=== PATIENT | male | born 1985 | race Caucasian/White ===

== ENCOUNTER 2017-05-12 15:30 | Inpatient (IN) | payer MEDICARE, OTHER ==
--- NOTE | 2017-05-12 16:17 | PDOC ---
History of Present Illness - General Chief Complaint: Pain, Acute Stated Complaint: RT SIDE PAIN Time Seen by Provider: 05/12/17 16:16 - History of Present Illness Initial Comments: 05/12/17 16:55 31M with no pmh suspicions that he has gallstone, RUQ last right upper quadrant to epigastrium radiates to back 10/10 Worst while laying done worst after heavy meal and deep breathes. "food gets stuck" Gets better with hot showers. Hasnt tried any meds. Feels nauseated. 1 episode of vomiting 2 days ago, some chills and sweat. Poor diet, drinks 2 6-packs of beer in weekend. 05/12/17 18:48 Past History - Past Medical History Allergies/Adverse Reactions: Allergies Allergy/AdvReac Type Severity Reaction Status Date / Time No Known Allergies Allergy Verified 05/12/17 15:51 Home Medications: Ambulatory Orders NK [No Known Home Medication] 05/12/17 Other medical history: DENIES. - Suicide/Smoking/Psychosocial Hx Smoking History: Never smoked Review of Systems - Review of Systems Constitutional: Yes: Chills, Diaphoresis, Fever ABD/GI: Yes: Constipated, Diarrhea, Vomiting *Physical Exam - Vital Signs Last Vital Signs Temp Pulse Resp BP Pulse Ox 97.6 F 83 19 141/93 98 05/12/17 15:51 05/12/17 15:51 05/12/17 15:51 05/12/17 15:51 05/12/17 15:51 - Physical Exam Respiratory/Chest: positive: Lungs Clear, Normal Breath Sounds. negative: Chest Tender Cardiovascular: positive: Regular Rhythm, Regular Rate, S1, S2 Gastrointestinal/Abdominal: positive: Normal Bowel Sounds, Tender (URQ), Soft, Other (negative Mccormack's) Neurologic: positive: Fully Oriented, Alert, Normal Mood/Affect ED Treatment Course - LABORATORY CBC & Chemistry Diagram: 05/12/17 16:26 05/12/17 16:26 Medical Decision Making - Medical Decision Making 05/12/17 18:48 31M with no pmh suspicions that he has gallstone, RUQ last right upper quadrant. Upper abdomen ultrasound: Positive for 1.3cm gallstone in the neck. Dr Britton, surgeon. consulted and accepted to see him. 05/12/17 19:04 Signed out to 05/12/17 19:05 *DC/Admit/Observation/Transfer Diagnosis at time of Disposition: Cholelithiasis
[2017-05-12 16:58] LABS: BASOPHIL 0.4 % (0-2.0); EOSINOPHIL 0.5 % (0-4.5); MCH 29.5 pg (25.7-33.7); MCHC 34.1 g/dl (32.0-35.9); MEAN CELL VOLUME 86.4 fl (80-96); NEUTROPHILS 83.5 % (42.8-82.8); PLATELET COUNT 295 K/MM3 (134-434); RDW 13.4 % (11.9-15.9); WHITE BLOOD COUNT 11.4 K/mm3 (4.0-10.0)
[2017-05-12 17:00] LABS: URINE APPEARANCE CLOUDY; URINE BILIRUBIN NEGATIVE (NEGATIVE); URINE BLOOD NEGATIVE (NEGATIVE); URINE COLOR DKYELLOW; URINE GLUCOSE (UA) NEGATIVE (NEGATIVE); URINE KETONE 2+ (NEGATIVE); URINE NITRITE NEGATIVE (NEGATIVE); URINE PROTEIN NEGATIVE (NEGATIVE); URINE UROBILINOGEN 4.0 E.U/dl mg/dL (0.2-1.0)
[2017-05-12 17:33] LABS: ALBUMIN 4.3 g/dl (3.4-5.0); ANION GAP 8 (8-16); CALCIUM 9.6 mg/dL (8.5-10.1); CO2 29 mmol/L (21-32); CREATININE 0.9 mg/dL (0.7-1.3); GLUCOSE,RANDOM 114 mg/dL (74-106); SGOT/AST 32 U/L (15-37); SGPT/ALT 62 U/L (12-78)
[2017-05-12 17:35] LABS: ALK PHOS 102 U/L (45-117); TOT PROT 8.2 g/dl (6.4-8.2)
--- NOTE | 2017-05-12 18:46 | PDOC ---
Attending Attestation - Resident Resident Name: Orlando Morton - ED Attending Attestation I have performed the following: I have examined & evaluated the patient, The case was reviewed & discussed with the resident, I agree w/resident's findings & plan, Exceptions are as noted - HPI HPI: 05/12/17 18:45 EPIGASTRIC AND RUQ PAIN - Physicial Exam PE: 05/12/17 18:45 VSS NAD - Medical Decision Making 05/12/17 18:[address] Morton's Assessment and Plan Discharge Disposition - Diagnosis Chronic cholecystitis Cholelithiasis Qualifiers: Cholelithiasis location: gallbladder Cholecystitis presence: with cholecystitis Cholecystitis acuity: chronic Biliary obstruction: without biliary obstruction Qualified Code(s): K80.10 - Calculus of gallbladder with chronic cholecystitis without obstruction; K80.10 - Calculus of gallbladder with chronic cholecystitis without obstruction - Discharge Dispostion Condition at time of disposition: Improved
[2017-05-12] MEDS ORDERED: DEXTROSE 5%-LACTATED RINGERS 1,000 ML IV SCH (19:00)
[2017-05-12 19:54] LABS: INR 1.05 (0.82-1.09); PROTHROMBIN TIME (PATIENT) 11.9 SEC (9.98-11.88)
[2017-05-12 19:57] LABS: ACTIVATED PTT 31.8 SECONDS (26.9-34.4)
[2017-05-12] MEDS ORDERED: morphine CARPU-JECT 4 MG/1 ML DISP.SYRIN IVPUSH ONE (20:32)
[2017-05-12] MEDS ORDERED: ONDANSETRON 4 MG/2 ML VIAL IVPUSH ONE (20:32)
[2017-05-12] MEDS ORDERED: ONDANSETRON 4 MG/2 ML VIAL ONE (20:48)
[2017-05-12] MEDS ORDERED: morphine CARPU-JECT 2 MG/1 ML DISP.SYRIN ONE (20:48)
[2017-05-12 21:06] LABS: URINE LEUK ESTERASE Negative (NEGATIVE)
[2017-05-12] MEDS ORDERED: morphine CARPU-JECT 2 MG/1 ML DISP.SYRIN IVPUSH PRN (21:20)
[2017-05-12] MEDS ORDERED: ONDANSETRON 4 MG/2 ML VIAL IVPUSH PRN (21:24)
[2017-05-12] MEDS ORDERED: LACTATED RINGERS SOLUTION 1,000 ML IV SCH (21:30)
--- NOTE | 2017-05-12 21:41 | HP ---
Admitting History and Physical - Primary Care Physician PCP: none - Admission Chief Complaint: RUQ pain, N/V History of Present Illness: 31yo healthy M has had intermittent RUQ pain over last two years, usually lasts <= 2 hours and resolves spontaneously. The pain is associated with "heavy meals, " fatty food intake, eating large portions. On Tuesday, the pain came back, after having eaten fried food, but this time stayed longer. Tuesday, he had an episode of N/V with worse pain and has not had solid food since. He has tolerated water and juices this week. Tuesday, the pain was better. Yesterday, it came back, and today it was very severe, prompting this ER visit. He had diarrhea early in the week for a couple of days, but has not moved his bowels since Tuesday. He tends to constipation usually. No fever/chills. Thought it was his gallbladder, but never sought medical attention before today. Last liquid intake was about 1pm before coming to ER. In ER, he is afebrile, wbc 11.4. H/H high with ketones in urine. LFTs and lipase normal. US shows moderate sized gallstone in neck of gallbladder with overlying sludge, without signs of cholecystitis. He is still in pain, and feels worse than when he got here. History Source: Patient Limitations to Obtaining History: No Limitations - Past Medical History Gastrointestinal: Yes: Constipation Psych: Yes: Anxiety (had a few attacks about 3 years ago, never medicated) - Past Surgical History Past Surgical History: Yes: None - Smoking History Smoking history: Current some day smoker Have you smoked in the past 12 months: Yes Aproximately how many cigarettes per day: 0 (social/occasional, last >1m ago) - Alcohol/Substance Use Hx Alcohol Use: Yes (2-3 6pks of beer a week) Number of Drinks Daily: 0 (few times a week, few to several beers at a time) History of Substance Use: reports: Marijuana (few times a month) Date of Last Use: 04/24/17 (about 2-3 wks ago) - Social History Usual Living Arrangement: Yes: Other (with aunt) ADL: Independent Occupation: helps with furniture trucks on weekends Home Medications - Allergies Allergies/Adverse Reactions: Allergies Allergy/AdvReac Type Severity Reaction Status Date / Time shrimp Allergy Intermediate Swelling Verified 05/12/17 21:46 - Home Medications Home Medications: Ambulatory Orders NK [No Known Home Medication] 05/12/17 Family Disease History - Family Disease History Family Disease History: Heart Disease: Father ( at 30 of heroin/EtOH overdose, not sure if suicide or given to him), CA: Grandparent (mother's side with colon CA hx), Mother (ovarian ~35, at 44 of metastatic CA) Review of Systems - Review of Systems Constitutional: denies: Chills, Fever Eyes: reports: Other (wears contact lenses). denies: Recent Change in Vision HENT: denies: Difficult Swallowing, Hearing Loss, Nasal Congestion, Throat Pain Cardiovascular: denies: Chest Pain, Palpitations Respiratory: denies: Cough, SOB Gastrointestinal: reports: Abdominal Pain (with hpi), Constipation, Diarrhea ( couple days ago for 2 days), Nausea (with hpi), Vomiting (with hpi) Genitourinary: denies: Burning, Dysuria, Frequency, Urgency Musculoskeletal: denies: Back Pain, Joint Pain, Muscle Pain Integumentary: denies: Change in Color, Rash Neurological: denies: Dizziness, Headache Psychiatric: denies: Anxiety, Depression Physical Examination Vital Signs: Vital Signs Temperature 97.6 F 05/12/17 15:51 Pulse Rate 77 05/12/17 21:05 Respiratory Rate 18 05/12/17 21:05 Blood Pressure 139/83 05/12/17 21:05 O2 Sat by Pulse Oximetry (%) 100 05/12/17 21:05 Constitutional: Yes: Well Nourished, Calm, Mild Distress (secondary to pain) Eyes: Yes: Conjunctiva Clear, EOM Intact. No: Sclera Icterus HENT: Yes: Atraumatic, Normocephalic Neck: Yes: Supple, Trachea Midline Cardiovascular: Yes: Regular Rate and Rhythm. No: Murmur Respiratory: Yes: Regular, CTA Bilaterally Gastrointestinal: Yes: Soft, Hypoactive Bowel Sounds, Tenderness (RUQ, less epigastric, no R/G, + Mccormack's), Tenderness, Epigastrium. No: Distention, Tenderness, Rebound ...Rectal Exam: Yes: Deferred Renal/: No: CVA Tenderness - Left, CVA Tenderness - Right Musculoskeletal: No: Joint Stiffness, Joint Swelling Extremities: No: Cool, Cyanosis Edema: No Peripheral Pulses WNL: Yes Integumentary: Yes: Tattoos (RUE). No: Jaundice Neurological: Yes: Alert, Oriented Psychiatric: Yes: Alert, Oriented Labs: CBC, BMP 05/12/17 16:26 05/12/17 16:26 CMP Sodium 137 mmol/L (136-145) 05/12/17 16:26 Potassium 4.2 mmol/L (3.5-5.1) 05/12/17 16:26 Chloride 100 mmol/L (98-107) 05/12/17 16:26 Carbon Dioxide 29 mmol/L (21-32) 05/12/17 16:26 Anion Gap 8 (8-16) 05/12/17 16:26 BUN 10 mg/dL (7-18) 05/12/17 16:26 Creatinine 0.9 mg/dL (0.7-1.3) 05/12/17 16:26 Creat Clearance w eGFR > 60 (>60) 05/12/17 16:26 Random Glucose 114 mg/dL (74-106) H 05/12/17 16:26 Calcium 9.6 mg/dL (8.5-10.1) 05/12/17 16:26 Total Bilirubin 1.0 mg/dL (0.2-1.0) 05/12/17 16:26 AST 32 U/L (15-37) 05/12/17 16:26 ALT 62 U/L (12-78) 05/12/17 16:26 Alkaline Phosphatase 102 U/L (45-117) 05/12/17 16:26 Total Protein 8.2 g/dl (6.4-8.2) 05/12/17 16:26 Albumin 4.3 g/dl (3.4-5.0) 05/12/17 16:26 Lipase 87 U/L (73-393) 05/12/17 17:22 dehydrated Imaging - Results Ultrasound: Report Reviewed (sludge and 1.2 cm stone in gb neck, no cholecystitis, cbd normal), Image Reviewed Problem List - Problems (1) Calculus of gallbladder with chronic cholecystitis without obstruction Assessment/Plan: Admit to surgery NPO/IVF pain meds prn trend labs GI/DVT prophylaxis Discussed with patient risks, benefits and alternatives of laparoscopic possible open cholecystectomy, including but not limited to bleeding, infection , injury to adjacent structures, bile leak or ductal injury, intraabdominal collections, need for further procedures; alternatives include delayed or no surgery - risks of this include recurrence, cholecystitis, cholangitis, pancreatitis, sepsis, . Patient desires to proceed with operation - will take to OR tomorrow for above. Informed consent signed for same. Perioperative antibiotics only anticipate resuming po postop will likely stay two midnights and go home the day after surgery will refer for primary care on discharge Code(s): K80.10 - CALCULUS OF GALLBLADDER W CHRONIC CHOLECYST W/O OBSTRUCTION (2) Dehydration Assessment/Plan: IV fluid hydration NPO until after surgery strict I/O's Code(s): E86.0 - DEHYDRATION
[2017-05-13] MEDS ORDERED: ONDANSETRON 4 MG/2 ML VIAL IVPUSH ONE (01:13)
[2017-05-13] MEDS ORDERED: morphine CARPU-JECT 4 MG/1 ML DISP.SYRIN IVPUSH ONE (01:13)
[2017-05-13] MEDS ORDERED: morphine CARPU-JECT 2 MG/1 ML DISP.SYRIN ONE (01:57)
[2017-05-13 06:59] LABS: BASOPHIL 0.8 % (0-2.0); EOSINOPHIL 1.8 % (0-4.5); MCH 29.8 pg (25.7-33.7); MCHC 34.6 g/dl (32.0-35.9); MEAN PLT VOLUME 7.9 fl (7.5-11.1); NEUTROPHILS 69.1 % (42.8-82.8); PLATELET COUNT 262 K/MM3 (134-434); RDW 13.2 % (11.9-15.9); WHITE BLOOD COUNT 9.1 K/mm3 (4.0-10.0)
[2017-05-13 07:26] LABS: ALBUMIN 3.6 g/dl (3.4-5.0); ALK PHOS 90 U/L (45-117); ANION GAP 7 (8-16); BILIRUBIN,TOTAL 1.1 mg/dL (0.2-1.0); CALCIUM 8.9 mg/dL (8.5-10.1); CO2 30 mmol/L (21-32); GLUCOSE,RANDOM 100 mg/dL (74-106); SGOT/AST 34 U/L (15-37); SGPT/ALT 58 U/L (12-78); TOT PROT 7.2 g/dl (6.4-8.2)
[2017-05-13] MEDS ORDERED: BUPIVACAINE HCL/PF 0.5% (5MG/ML) 10 ML VIAL ONE (07:46)
[2017-05-13] MEDS ORDERED: BUPIVACAINE HCL/PF 0.25% (2.5MG/ML) 10 ML VIAL ONE (07:46)
[2017-05-13] MEDS ORDERED: IBUPROFEN 800 MG/8 ML IJ IVPB ONE ×2 (08:27→08:33)
[2017-05-13] MEDS ORDERED: MIDAZOLAM HCL 2 MG/2 ML SINGLE DOSE VIAL ONE (08:28)
[2017-05-13] MEDS ORDERED: CEFOXITIN SODIUM 2 GM IVPB ONE (08:37)
[2017-05-13] MEDS ORDERED: DEXAMETHASONE SOD PHOSPHATE 4 MG/1 ML VIAL ONE ×2 (08:39→10:21)
[2017-05-13] MEDS ORDERED: LIDOCAINE HCL/PF 2% SDV 5ML VIAL ONE (08:41)
[2017-05-13] MEDS ORDERED: PROPOFOL 20 ML ONE (08:41)
[2017-05-13] MEDS ORDERED: ROCURONIUM BROMIDE 50 MG/5 ML VIAL ONE (08:42)
[2017-05-13] MEDS ORDERED: cefOXitin SODIUM 1 GM VIAL (RESTRICTED TO ID) IVPB ONE (08:49)
[2017-05-13] MEDS ORDERED: BUPIVACAINE HCL/PF (5 MG/ML) 30 ML VIAL IJ ONE ×2 (08:57→10:32)
[2017-05-13] MEDS ORDERED: HYDROmorphone HCL CARPU-JECT 2 MG/1 ML DISP.SYRIN IVPUSH ONE ×2 (10:51→12:05)
[2017-05-13] MEDS ORDERED: HYDROmorphone HCL CARPU-JECT 1 MG/1 ML DISP.SYRIN IVPUSH PRN (10:54)
--- NOTE | 2017-05-13 11:15 | OP ---
Operative Note - Note: Operative Date: 05/13/17 Pre-Operative Diagnosis: chronic cholecystitis with impacted gallstone in neck of gallbladder Operation: laparoscopic cholecystectomy Findings: tense gallbladder decompressed of 35ml brown bile, inflamed/edematous gallbladder; hole made in cystic duct just above CBD junction, clips placed on cystic duct just at junction, along edge of CBD, with no leakage afterward; HUSSEIN drain left in gallbladder fossa Post-Operative Diagnosis: Same as Pre-op Surgeon: Andrea Britton Spar Machine Operator: Julius Canela Anesthesiologist/TELECASTING ENGINEER: Rashard Riley Anesthesia: General, Local (10ml 0.5% marcaine) Specimens Removed: gallbladder to pathology Estimated Blood Loss (mls): 100 Drains & Tubes with Location: 10Fr HUSSEIN drain in gallbladder fossa to bulb suction Fluid Volume Replaced (mls): 1,000 (crystalloid) Operative Report Dictated: Yes
[2017-05-13] MEDS ORDERED: ACETAMINOPHEN 325 MG TABLET (FP) PO PRN (11:19)
[2017-05-13] MEDS ORDERED: oxyCODONE HCL 5 MG TABLET PO PRN (11:21)
[2017-05-13] MEDS ORDERED: morphine CARPU-JECT 2 MG/1 ML DISP.SYRIN IVPUSH PRN ×2 (11:27→11:48)
[2017-05-13] MEDS ORDERED: ONDANSETRON 4 MG/2 ML VIAL IVPUSH PRN (11:48)
--- NOTE | 2017-05-13 11:59 | SURG ---
Surgery Natural Science Manager Note Natural Science Manager: Julius Canela PA-C Date of Service: 05/13/17 Diagnosis: Cholecystitis, cholelithiasis Procedure: Laparoscopic cholecystectomy I was present for the entirety of the operative procedure. For further detail, please refer to operative report. Visit type - Case Type Case Type: ED Admission - Emergency Emergency Visit: Yes ED Registration Date: 05/12/17 Care time: The patient presented to the Emergency Department on the above date and was hospitalized for further evaluation of their emergent condition. - New patient This patient is new to me today: Yes Date on this admission: 05/13/17
--- NOTE | 2017-05-13 12:44 | CON.GI ---
Consult Consult Specialty:: GI Referred by:: Surgery Reason for Consultation:: s/p dificult cholecystectomy. Possibility of bile leak - History of Present Illness History of Present Illness: Admitting H&P and post op note reviewed, also discussed with the operating surgeon. A 31 yo male with symptomatic cholelithiasis on/off for 3 years. The episode was most severe. S/p somewhat difficult cholecystectomy today. Suspicion for possible bile leak from cystic duct-CBD junction. The junction was clipped and no bile leak observed immediately after. Concern for bile leak however remains. A HUSSEIN drain with bulb suction left to drain the GB fossa. - History Source History Provided By: Patient, Medical Record - Past Medical History Gastrointestinal: Yes: Constipation Psych: Yes: Anxiety (had a few attacks about 3 years ago, never medicated) - Past Surgical History Past Surgical History: Yes: None - Alcohol/Substance Use Hx Alcohol Use: Yes (2-3 6pks of beer a week) Number of Drinks Daily: 0 (few times a week, few to several beers at a time) History of Substance Use: reports: Marijuana (few times a month) Date of Last Use: 04/24/17 (about 2-3 wks ago) - Smoking History Smoking history: Current some day smoker Have you smoked in the past 12 months: Yes Aproximately how many cigarettes per day: 0 (social/occasional, last >1m ago) - Social History ADL: Independent Occupation: helps with furniture trucks on weekends Home Medications - Allergies Allergies/Adverse Reactions: Allergies Allergy/AdvReac Type Severity Reaction Status Date / Time shrimp Allergy Intermediate Swelling Verified 05/12/17 21:46 - Home Medications Home Medications: Ambulatory Orders NK [No Known Home Medication] 05/12/17 Family Disease History - Family Disease History Family Disease History: Heart Disease: Father ( at 30 of heroin/EtOH overdose, not sure if suicide or given to him), CA: Grandparent (mother's side with colon CA hx), Mother (ovarian ~35, at 44 of metastatic CA) Physical Exam-GI Vital Signs: Vital Signs Temperature 99.0 F 05/13/17 10:51 Pulse Rate 84 05/13/17 11:20 Respiratory Rate 16 05/13/17 11:20 Blood Pressure 140/75 05/13/17 11:20 O2 Sat by Pulse Oximetry (%) 99 05/13/17 11:20 Constitutional: Yes: Well Nourished, Anxious Eyes: Yes: Conjunctiva Clear HENT: Yes: Atraumatic Neck: Yes: Supple Cardiovascular: Yes: Regular Rate and Rhythm Respiratory: Yes: Regular Gastrointestinal Inspection: Yes: Other (Not examined. post-op earlier today) Musculoskeletal: Yes: WNL Extremities: Yes: WNL Integumentary: Yes: Tattoos. No: Jaundice Neurological: Yes: Alert, Oriented Labs: CBC, BMP 05/13/17 06:20 05/13/17 06:20 INR, PTT INR 1.05 (0.82-1.09) 05/12/17 19:17 Laboratory Results - last 24 hr 05/12/17 05/12/17 05/12/17 16:26 16:26 16:26 WBC 11.4 H RBC 5.99 H Hgb 17.6 H Hct 51.7 H MCV 86.4 MCH 29.5 MCHC 34.1 RDW 13.4 Plt Count 295 MPV 8.0 Neutrophils % 83.5 H Lymphocytes % 8.6 Monocytes % 7.0 Eosinophils % 0.5 Basophils % 0.4 PT with INR INR PTT (Actin FS) Sodium 137 Potassium 4.2 Chloride 100 Carbon Dioxide 29 Anion Gap 8 BUN 10 Creatinine 0.9 Creat Clearance w eGFR > 60 Random Glucose 114 H Calcium 9.6 Total Bilirubin 1.0 AST 32 ALT 62 Alkaline Phosphatase 102 Total Protein 8.2 Albumin 4.3 Lipase Urine Color Dkyellow Urine Appearance Cloudy Urine pH 6.0 Ur Specific [place] 1.020 Urine Protein Negative Urine Glucose (UA) Negative Urine Ketones 2+ H Urine Blood Negative Urine Nitrite Negative Urine Bilirubin Negative Urine Urobilinogen 4.0 e.u/dl Ur Leukocyte Esterase Negative Blood Type Antibody Screen 05/12/17 05/12/17 05/12/17 17:22 19:17 19:17 WBC RBC Hgb Hct MCV MCH MCHC RDW Plt Count MPV Neutrophils % Lymphocytes % Monocytes % Eosinophils % Basophils % PT with INR 11.90 H INR 1.05 PTT (Actin FS) 31.8 Sodium Potassium Chloride Carbon Dioxide Anion Gap BUN Creatinine Creat Clearance w eGFR Random Glucose Calcium Total Bilirubin AST ALT Alkaline Phosphatase Total Protein Albumin Lipase 87 Urine Color Urine Appearance Urine pH Ur Specific [place] Urine Protein Urine Glucose (UA) Urine Ketones Urine Blood Urine Nitrite Urine Bilirubin Urine Urobilinogen Ur Leukocyte Esterase Blood Type O POSITIVE Antibody Screen Negative 05/13/17 05/13/17 06:20 06:20 WBC 9.1 RBC 5.56 Hgb 16.5 Hct 47.8 MCV 86.0 MCH 29.8 MCHC 34.6 RDW 13.2 Plt Count 262 MPV 7.9 Neutrophils % 69.1 Lymphocytes % 17.0 D Monocytes % 11.3 H Eosinophils % 1.8 D Basophils % 0.8 PT with INR INR PTT (Actin FS) Sodium 138 Potassium 4.2 Chloride 101 Carbon Dioxide 30 Anion Gap 7 L BUN 8 Creatinine 1.0 Creat Clearance w eGFR > 60 Random Glucose 100 Calcium 8.9 Total Bilirubin 1.1 H AST 34 ALT 58 Alkaline Phosphatase 90 Total Protein 7.2 Albumin 3.6 Lipase 147 Urine Color Urine Appearance Urine pH Ur Specific [place] Urine Protein Urine Glucose (UA) Urine Ketones Urine Blood Urine Nitrite Urine Bilirubin Urine Urobilinogen Ur Leukocyte Esterase Blood Type Antibody Screen Imaging - Results Ultrasound: Report Reviewed Problem List - Problems (1) Calculus of gallbladder with chronic cholecystitis without obstruction Code(s): K80.10 - CALCULUS OF GALLBLADDER W CHRONIC CHOLECYST W/O OBSTRUCTION (2) Cholelithiasis Code(s): K80.20 - CALCULUS OF GALLBLADDER W/O CHOLECYSTITIS W/O OBSTRUCTION Qualifiers: Cholelithiasis location: gallbladder Cholecystitis presence: with cholecystitis Cholecystitis acuity: chronic Biliary obstruction: without biliary obstruction Qualified Code(s): K80.10 - Calculus of gallbladder with chronic cholecystitis without obstruction; K80.10 - Calculus of gallbladder with chronic cholecystitis without obstruction (3) Chronic cholecystitis Code(s): K81.1 - CHRONIC CHOLECYSTITIS Assessment/Plan s/p cholecystectomy with concern for bile leak from cystic duct. monitor for bile in HUSSEIN drainage, worsening RUQ pain, fever, leukocytosis, liver chemistry, GGT MRCP, or HIDA in 2 days if level of suspicion is high ERCP with CBD stenting if cystic duct leak present will follow
[2017-05-13] MEDS: oxyCODONE HCL 5 MG TABLET PO PRN ×2 (15:48→21:42)
[2017-05-13] MEDS: ACETAMINOPHEN 325 MG TABLET (FP) PO PRN (15:48)
[2017-05-13] MEDS: LACTATED RINGERS SOLUTION 1,000 ML IV SCH ×2 (15:49→23:35)
[2017-05-13] MEDS ORDERED: HYDROmorphone HCL CARPU-JECT 2 MG/1 ML DISP.SYRIN ONE (15:59)
[2017-05-13] MEDS ORDERED: cefOXitin SODIUM 2 GM VIAL (RESTRICTED TO ID) IVPB ONE ×2 (17:00)
[2017-05-13] MEDS ORDERED: CEFOXITIN SODIUM 2 GM in DEXTROSE 5%-WATER - 100 ML IVPB ONE (17:00)
[2017-05-13 17:45] VITALS: BMI 26.3
[2017-05-13] MEDS ORDERED: PT OWN MED DRAWER 7, Y5N ONE (18:22)
[2017-05-13] MEDS: DOCUSATE SODIUM 100 MG CAPSULE (FP) PO SCH (21:10)
[2017-05-13] MEDS ORDERED: DOCUSATE SODIUM 100 MG CAPSULE (FP) PO SCH (22:00)
[2017-05-14] MEDS: ACETAMINOPHEN 325 MG TABLET (FP) PO PRN (06:18)
[2017-05-14 08:48] LABS: BASOPHIL 0.6 % (0-2.0); EOSINOPHIL 1.3 % (0-4.5); MCH 29.6 pg (25.7-33.7); MCHC 33.8 g/dl (32.0-35.9); MEAN CELL VOLUME 87.7 fl (80-96); MEAN PLT VOLUME 8.3 fl (7.5-11.1); NEUTROPHILS 66.3 % (42.8-82.8); PLATELET COUNT 247 K/MM3 (134-434); RDW 12.9 % (11.9-15.9); WHITE BLOOD COUNT 7.4 K/mm3 (4.0-10.0)
--- NOTE | 2017-05-14 09:13 | OP ---
DATE OF OPERATION: 05/13/2017 PREOPERATIVE DIAGNOSIS: Chronic cholecystitis with impacted gallstone in the neck of the gallbladder. POSTOPERATIVE DIAGNOSIS: Chronic cholecystitis with impacted gallstone in the neck of the gallbladder. PROCEDURE PERFORMED: Laparoscopic cholecystectomy. SURGEON: Andrea Britton MD CHICKEN HANDLER: Julius Canela PA-C ANESTHESIA: General endotracheal and local 10 mL of 0.5% Marcaine. ESTIMATED BLOOD LOSS: 100 mL. FLUIDS: 1 L of crystalloid. SPECIMEN: Gallbladder to Pathology. DRAINS: A 10-[place] HUSSEIN drain was left in the gallbladder fossa to bulb suction. FINDINGS: A tense gallbladder decompressed of 35 mL of brown bile. The gallbladder was inflamed and edematous. There was a small hole made in the cystic duct just above the common bile duct junction. Clips were placed on the cystic duct just at this junction along the edge of the common bile duct with no leakage afterward and a HUSSEIN drain was left in the gallbladder fossa. The critical view was identified. DISPOSITION: Stable and extubated, to PACU. INDICATIONS FOR PROCEDURE: The patient is a 31-year-old healthy male who has experienced intermittent right upper quadrant pain over the previous 2 years generally resolving spontaneously within hours, but associated with fatty food intake and large meals. Several days ago, the pain returned, after a meal of fried food, but persisted, associated with an episode of nausea and vomiting. Although he has tolerated water and juice, the pain returned the day prior to presentation, and then became very severe the next day, prompting a visit to the emergency room. In the ER, he was afebrile with a white count of 11.4 thousand, normal LFTs and lipase, and an ultrasound that showed a moderate-sized gallstone in the neck of the gallbladder with overlying sludge without clear signs of cholecystitis. Risks, benefits and alternatives of a laparoscopic possible open cholecystectomy were discussed with the patient, including, but not limited to, bleeding, infection, injury to adjacent structures, bile leak or ductal injury, intra-abdominal collections, need for further procedures. The patient is agreeable to operation, signed informed consent for the same, and is now brought to the operating room for surgery. OPERATIVE TECHNIQUE: The patient was brought to the operating room and laid supine on the operating table. Sequential compression devices were applied to bilateral lower extremities and 2 g of cefoxitin were given as preoperative antibiotic. The patient's abdominal hair was clipped in the holding area, prior to moving into the room. After induction and intubation by Anesthesia, the patient's abdomen was prepped and draped in sterile fashion. A small supraumbilical midline incision was made with a scalpel, and carried into subcutaneous tissues with electrocautery, until the abdominal wall fascia was identified, scored, and elevated with Asuncion clamps. The peritoneum was entered bluntly with the tip of a clamp and a fingertip used to ensure entry into the abdominal cavity and the absence of any underlying adhesions. A stay suture of 0 Vicryl was then placed in [id number] fashion in the fascia for later closure and the Sheryl trocar introduced directly into the abdominal cavity and secured in place with the balloon. The abdomen was insufflated with carbon dioxide and the laparoscope was inserted to inspect the abdominal cavity. The patient was placed in reverse Trendelenburg position with the right side planed upward. The gallbladder was immediately visible and appeared rather tense. In addition, a 5-mm port was placed in the subxiphoid area under direct vision and two additional 5-mm ports in the right upper quadrant also under direct vision. Graspers were introduced, confirming that the gallbladder was tense and filled with fluid, and a decompression needle was introduced through one of the right lateral ports and used to decompress the gallbladder from the fundus of 35 mL of brown bile. Once this had been accomplished, the grasper was used to grasp the fundus of the gallbladder and elevate it over the liver edge. A second grasper was used to grasp the infundibulum of the gallbladder where there was noted to be a bulge and a mobile stone present. This was gently milked back toward the gallbladder several times to enable grasping of the infundibulum which was retracted laterally. A [place] dissector was then used to begin opening the peritoneum over the base of the gallbladder which was noted to be rather inflamed. Some of the fatty surfaces were friable with some oozing of blood. Hook cautery was then used to continue dividing some of the peritoneum up onto the medial and lateral sides of the gallbladder adjacent to the liver bed. The [place] dissector was used to work on exposing the cystic duct at the base of the gallbladder. The lymph node of Calot was identified medially and a small anterior possibly vascular structure was also identified just medial to the node which was ultimately clipped proximally and divided with the hook cautery distally. The dissection was somewhat difficult, given the level of inflammation, and the suction maintenance machinist tool was also used periodically to irrigate the field with saline and suction it clear. At one point, it became evident that there was a little bit of bile spilling from the area that we anticipated finding the cystic duct. Dissection was undertaken around the lateral side of the base of the gallbladder to expose the base of the bag itself, as well as identification of the cystic artery just behind the lymph node of Calot. At one point it became clear, visualizing the artery, that there was a branch point lower down that curved back around toward the common bile duct, which was tented up toward the shorter cystic duct and the base of the gallbladder. It was at this point that it became clear that the small hole was indeed in the cystic duct, but that it appeared to be at or near the cystic duct-common bile duct junction. Additional dissection was undertaken to create a window behind the cystic duct itself, exposing the critical view from both medial and lateral sides, as the cystic duct was the only structure directly entering the gallbladder. The common bile duct was identifiable where the cystic duct joined it with the small hole on the cystic duct just at the junction itself. The cystic duct itself was isolated from surrounding peritoneal tissue and a 10-mm clip clinical team manager was introduced and used to clip the cystic duct just at the junction of the CBD alongside the common bile duct and parallel to its wall, close enough to ensure closure of the hole without impinging directly on the common bile duct. A second clip was placed immediately above this on the cystic duct side to ensure complete closure. A third clip was placed on the cystic duct up against the gallbladder wall. With relaxation on the infundibular grasper, there was no additional bile leakage noted and the cystic duct was clipped up close to the gallbladder side, leaving a long stump and the 2 clips adjacent to the CBD. The cystic artery was then carefully isolated in a similar fashion with the [place] dissector and clipped well above the branch point, 2 proximally and 1 distally, and divided with endoscissors. Inspection of the tissue at the base of the gallbladder revealed no additional vascular structures, and the hook cautery was then used to continue and to complete taking the gallbladder off of the liver bed until it was entirely free. It was then placed in an Endo Catch bag, retrieved out the umbilical port site, and passed off the table for a pathology specimen. The Sheryl trocar and pneumoperitoneum were re-established and the camera re- inserted to inspect the operative site. There was no active bleeding noted and hemostasis was good. The suction maintenance machinist was then used to irrigate the field with saline from the bile spill and suction the fluid a number of times until the fluid ran clear. Some blood clots were also suctioned in this process. A 10-[place] HUSSEIN drain was then introduced down the umbilical port and drawn out through the right lateral upper quadrant port. This was positioned with graspers to lie in the gallbladder fossa and out toward the right edge of the liver. This was secured in place at the skin with a nylon suture and attached to bulb suction. The abdomen was then exsufflated in part of carbon dioxide and the laparoscope used to observe the abdominal wall come down against the drain placement. The other ports were removed and the Sheryl trocar and camera were then removed from the abdominal cavity which was exsufflated the rest of the way of carbon dioxide. The stay suture at the umbilical site was tied to close the fascia there. All port sites were irrigated with saline solution. Hemostasis was achieved with electrocautery in the port sites where necessary. The port sites were closed with 3-0 and 4-0 Vicryl sutures, and a running 4-0 Biosyn subcuticular suture was used at the umbilical site, after a couple of deep sutures were taken with 3-0 Vicryl. Local anesthetic of 0.5% Marcaine was infiltrated into all of the port sites. Benzoin and Steri-Strips were applied to each site, which were then covered with dressings of gauze and Tegaderm. A drain dressing was also applied. Counts were correct at the end of the procedure. The patient was then awakened and extubated by Anesthesia and moved back to a stretcher, to be taken to the recovery room in stable condition, having tolerated the procedure well. Julius Canela was an essential medical billing assistant throughout the operation, and was present for the entire time, assisting with entry into the abdominal cavity, decompression of the gallbladder, retraction and manipulation of the gallbladder, retrieval of the gallbladder at the end of the procedure, as well as with skin closures. Bernabe Kelley/[id number] MTDLuis Daniel
[2017-05-14 09:16] LABS: ALBUMIN 3.1 g/dl (3.4-5.0); ALK PHOS 75 U/L (45-117); AMYLASE 35 U/L (25-115); ANION GAP 10 (8-16); BILIRUBIN,TOTAL 1.1 mg/dL (0.2-1.0); CALCIUM 8.6 mg/dL (8.5-10.1); CO2 27 mmol/L (21-32); CREATININE 0.7 mg/dL (0.7-1.3); GLUCOSE,RANDOM 83 mg/dL (74-106); SGOT/AST 32 U/L (15-37); SGPT/ALT 60 U/L (12-78); TOT PROT 6.4 g/dl (6.4-8.2)
[2017-05-14] MEDS: DOCUSATE SODIUM 100 MG CAPSULE (FP) PO SCH ×2 (09:45→21:07)
[2017-05-14] MEDS: oxyCODONE HCL 5 MG TABLET PO PRN ×2 (09:46→17:42)
[2017-05-14] MEDS: LACTATED RINGERS SOLUTION 1,000 ML IV SCH ×2 (09:48→14:15)
[2017-05-14] MEDS ORDERED: IBUPROFEN 600 MG TABLET (FP) PO PRN (14:30)
--- NOTE | 2017-05-14 14:37 | PN ---
Progress Note, Physician Chief Complaint: RUQ pain History of Present Illness: s/p lap danyel tolerating clears passing flatus, had loose BM voiding well OOB/ambulating 1750 on IS pain controlled with po meds drain with 135 out in PACU, 60 later yesterday, 30 overnight - Current Medication List Current Medications: Active Medications Acetaminophen (Tylenol -) 650 mg PO Q6H PRN PRN Reason: FEVER OR PAIN Last Admin: 05/14/17 06:18 Dose: 650 mg Docusate Sodium (Colace -) 100 mg PO BID MARBELLA Last Admin: 05/14/17 09:45 Dose: 100 mg Ibuprofen (Motrin -) 600 mg PO Q6H PRN PRN Reason: PAIN Ondansetron HCl (Zofran Injection) 4 mg IVPUSH Q6H PRN PRN Reason: NAUSEA Oxycodone HCl (Roxicodone -) 5 mg PO Q4H PRN PRN Reason: SEVERE PAIN Last Admin: 05/14/17 09:46 Dose: 5 mg - Objective Vital Signs: Vital Signs Temperature 98 F 05/14/17 09:00 Pulse Rate 84 05/14/17 09:00 Respiratory Rate 18 05/14/17 09:00 Blood Pressure 120/76 05/14/17 09:00 O2 Sat by Pulse Oximetry (%) 99 05/14/17 09:00 Constitutional: Yes: Well Nourished, No Distress, Calm Eyes: Yes: Conjunctiva Clear, EOM Intact. No: Sclera Icterus Cardiovascular: Yes: Regular Rate and Rhythm. No: Murmur Respiratory: Yes: Regular, CTA Bilaterally Gastrointestinal: Yes: Normal Bowel Sounds, Soft, Distention (minimal), Tenderness (mild RUQ, less RLQ/incisional), Other (HUSSEIN drain with serosanguineous fluid in bulb) Extremities: No: Cool, Cyanosis Edema: No Integumentary: Yes: Incision (x3 + drain site). No: Jaundice Wound/Incision: Yes: Dressing Dry and Intact (x4) Neurological: Yes: Alert, Oriented Labs: CBC, BMP 05/14/17 06:00 05/14/17 06:00 INR, PTT INR 1.05 (0.82-1.09) 05/12/17 19:17 CMP Sodium 138 mmol/L (136-145) 05/14/17 06:00 Potassium 4.0 mmol/L (3.5-5.1) 05/14/17 06:00 Chloride 101 mmol/L (98-107) 05/14/17 06:00 Carbon Dioxide 27 mmol/L (21-32) 05/14/17 06:00 Anion Gap 10 (8-16) 05/14/17 06:00 BUN 8 mg/dL (7-18) 05/14/17 06:00 Creatinine 0.7 mg/dL (0.7-1.3) D 05/14/17 06:00 Creat Clearance w eGFR > 60 (>60) 05/14/17 06:00 Random Glucose 83 mg/dL (74-106) 05/14/17 06:00 Calcium 8.6 mg/dL (8.5-10.1) 05/14/17 06:00 Total Bilirubin 1.1 mg/dL (0.2-1.0) H 05/14/17 06:00 GGT 79 U/L (5-85) 05/14/17 06:00 AST 32 U/L (15-37) 05/14/17 06:00 ALT 60 U/L (12-78) 05/14/17 06:00 Alkaline Phosphatase 75 U/L (45-117) 05/14/17 06:00 Total Protein 6.4 g/dl (6.4-8.2) 05/14/17 06:00 Albumin 3.1 g/dl (3.4-5.0) L 05/14/17 06:00 Total Amylase 35 U/L (25-115) 05/14/17 06:00 Lipase 113 U/L (73-393) 05/14/17 06:00 LFTs stable, am/lip normal, bili stable, wbc normal Problem List - Problems (1) Calculus of gallbladder with chronic cholecystitis without obstruction Assessment/Plan: POD1 s/p laparoscopic cholecystectomy with cystic duct hole close to CBD, cystic duct clipped, HUSSEIN drain left doing well advance diet, stop IVF po pain meds, will add ibuprofen to alt with tylenol + bowel function antibiotics completed trend labs monitor for bile leak - if + before Tuesday, will have ERCP with stent if no bile in drain through Tuesday afternoon, will plan HIDA Tues am GI following Code(s): K80.10 - CALCULUS OF GALLBLADDER W CHRONIC CHOLECYST W/O OBSTRUCTION (2) Dehydration Assessment/Plan: resolved Code(s): E86.0 - DEHYDRATION
--- NOTE | 2017-05-14 16:36 | PN ---
GI Progress Note Subjective: GI FOR DR PETERS PT SEEN EARLIER TODAY AT 2PM WITH DR HOPE PRESENT PT REPORTED MINIMAL DISCOMFORT IN RUQ REGION, NO SIGNIFICANT PAIN NO N/V/F/C/S HAD FLATUS WITHOUT PAIN OR DIFFICULTY - Objective Vital Signs: Vital Signs Temperature 98.4 F 05/14/17 15:00 Pulse Rate 71 05/14/17 15:00 Respiratory Rate 18 05/14/17 15:00 Blood Pressure 124/72 05/14/17 15:00 O2 Sat by Pulse Oximetry (%) 99 05/14/17 09:00 Constitutional: Well Nourished, No Distress, Calm Eyes: Yes: WNL HENT: Yes: WNL Neck: Yes: WNL (+BS, SOFT, MINIMAL TENDERNESS IN RUQ/EPIG REGION NO REBOUND OR GUARDING DRAIN INSPECTED WITH DR HOPE---COMPLETELY SEROSANGUINOUS AND MINIMAL FLUID IN DRAIN) Labs: CBC, BMP 05/14/17 06:00 05/14/17 06:00 INR, PTT INR 1.05 (0.82-1.09) 05/12/17 19:17 Assessment/Plan 31M S/P LAP BLANK YESTERDAY NOTED DOING WELL ALL VSS NO PAIN/MIN. DISCOMFORT HUSSEIN DRAINAGE NOTED AND CURRENTLY MINIMAL AND SEROSANGUINOUS EXAM BENIGN LFT'S REMAIN NORMAL NO CLINICAL, BIOCHEMICAL, OR EXAM FGINDINGS TO SUPPORT A BILE LEAK AT THIS TIME OR ANY ADVERSE SEQUELAE. TO L.C PROCEDURE WOULD CONTINUE TO F/U: HUSSEIN COLOR AND OUTPUT VITALS EXAM LFT'S/ CBC D/W DR HOPE AND PATIENT TOGETHER AGREE WITH CURRENT RX PLAN IF ANY CLINICAL CHANGES OR CONCERNS OF BILE LEAK OR SEQUALEA THEN WILL OBTAIN A HIDA SCAN AND SONOGRAM TO ASSESS FOR BILE DUCT LEAKAGE OR COLLECTION AND WILL THEN ADDRESS ACCORDINGLY WITH ERCP AND CBD STENTING IF NECESSARY MD JOSE
--- NOTE | 2017-05-14 17:56 | PN ---
Progress Note (short form) - Note Progress Note: Anesthesia post op note. S/P Laparoscopic cholecystectomy, POD#1. VSS. No post anesthesia complications.Signed off.
[2017-05-15] MEDS: ACETAMINOPHEN 325 MG TABLET (FP) PO PRN (06:46)
[2017-05-15 08:24] LABS: ALBUMIN 3.2 g/dl (3.4-5.0); ALK PHOS 74 U/L (45-117); ANION GAP 9 (8-16); BILIRUBIN,TOTAL 0.6 mg/dL (0.2-1.0); CALCIUM 8.8 mg/dL (8.5-10.1); CO2 29 mmol/L (21-32); CREATININE 0.8 mg/dL (0.7-1.3); GLUCOSE,RANDOM 86 mg/dL (74-106); SGOT/AST 31 U/L (15-37); SGPT/ALT 69 U/L (12-78); TOT PROT 6.6 g/dl (6.4-8.2)
[2017-05-15 08:25] LABS: MCH 30.1 pg (25.7-33.7); MCHC 34.9 g/dl (32.0-35.9); MEAN CELL VOLUME 86.2 fl (80-96); PLATELET COUNT 257 K/MM3 (134-434); RDW 13.2 % (11.9-15.9); WHITE BLOOD COUNT 6.1 K/mm3 (4.0-10.0)
[2017-05-15] MEDS: DOCUSATE SODIUM 100 MG CAPSULE (FP) PO SCH ×2 (10:10→21:37)
--- NOTE | 2017-05-15 10:42 | PN ---
Progress Note, Physician Chief Complaint: RUQ pain History of Present Illness: s/p lap danyel tolerating diet passing flatus, + BM voiding well OOB/ambulating pain controlled with tylenol drain with 70 out yesterday no fevers some tape blisters on skin at edges of tegaderms - Current Medication List Current Medications: Active Medications Acetaminophen (Tylenol -) 650 mg PO Q6H PRN PRN Reason: FEVER OR PAIN Last Admin: 05/15/17 06:46 Dose: 650 mg Docusate Sodium (Colace -) 100 mg PO BID MARBELLA Last Admin: 05/15/17 10:10 Dose: 100 mg Ondansetron HCl (Zofran Injection) 4 mg IVPUSH Q6H PRN PRN Reason: NAUSEA Oxycodone HCl (Roxicodone -) 5 mg PO Q4H PRN PRN Reason: SEVERE PAIN Last Admin: 05/14/17 17:42 Dose: 5 mg - Objective Vital Signs: Vital Signs Temperature 98.4 F 05/15/17 06:11 Pulse Rate 87 05/15/17 06:11 Respiratory Rate 20 05/15/17 06:11 Blood Pressure 127/61 05/15/17 06:11 O2 Sat by Pulse Oximetry (%) 99 05/14/17 21:00 Vital Signs Period Temp Pulse Resp BP Sys/Antony Pulse Ox Last 24 Hr 98.4 F-98.4 F 71-87 18-20 124-127/61-75 99 Intake & Output 05/14/17 05/15/17 05/15/17 23:59 07:59 15:59 Intake Total 550 Output Total 40 Balance 510 Intake: IV 550 Lactated Ringers Solution 550 1,000 ml @ 125 mls/hr IV [facility] Rx#: [id number] Output: Drainage 40 Right Lower Abdomen 40 Other: Voiding Method Urinal Urinal # Unmeasured Voids Void 2 2 Constitutional: Yes: Well Nourished, No Distress, Calm Eyes: Yes: Conjunctiva Clear, EOM Intact. No: Sclera Icterus Cardiovascular: Yes: Regular Rate and Rhythm. No: Murmur Respiratory: Yes: Regular, CTA Bilaterally Gastrointestinal: Yes: Normal Bowel Sounds, Soft, Distention (minimal), Tenderness (mild incisional/RUQ), Other (tape blisters at edges of tegaderm at few sites; HUSSEIN drain serosang, no bile, little in bulb, tubing stripped) Extremities: No: Cool, Cyanosis Integumentary: Yes: Other (few blisters, one intact, others open, few with skin still over). No: Jaundice Wound/Incision: Yes: Well Approximated, Steri Strips (x3), Dressing Dry and Intact (x4), Dressing Removed, Other (drain site with biopatch, redressed with gauze and small paper tape) Neurological: Yes: Alert, Oriented Labs: CBC, BMP 05/15/17 06:00 05/15/17 06:00 CMP Sodium 139 mmol/L (136-145) 05/15/17 06:00 Potassium 4.2 mmol/L (3.5-5.1) 05/15/17 06:00 Chloride 101 mmol/L (98-107) 05/15/17 06:00 Carbon Dioxide 29 mmol/L (21-32) 05/15/17 06:00 Anion Gap 9 (8-16) 05/15/17 06:00 BUN 10 mg/dL (7-18) D 05/15/17 06:00 Creatinine 0.8 mg/dL (0.7-1.3) 05/15/17 06:00 Creat Clearance w eGFR > 60 (>60) 05/15/17 06:00 Random Glucose 86 mg/dL (74-106) 05/15/17 06:00 Calcium 8.8 mg/dL (8.5-10.1) 05/15/17 06:00 Total Bilirubin 0.6 mg/dL (0.2-1.0) D 05/15/17 06:00 GGT 79 U/L (5-85) 05/14/17 06:00 AST 31 U/L (15-37) 05/15/17 06:00 ALT 69 U/L (12-78) 05/15/17 06:00 Alkaline Phosphatase 74 U/L (45-117) 05/15/17 06:00 Total Protein 6.6 g/dl (6.4-8.2) 05/15/17 06:00 Albumin 3.2 g/dl (3.4-5.0) L 05/15/17 06:00 Total Amylase 35 U/L (25-115) 05/14/17 06:00 Lipase 124 U/L (73-393) 05/15/17 06:00 Problem List - Problems (1) Calculus of gallbladder with chronic cholecystitis without obstruction Assessment/Plan: POD2 s/p laparoscopic cholecystectomy with cystic duct hole close to CBD, cystic duct clipped, HUSSEIN drain left doing well tolerating diet, feeling better tylenol prn for pain, oxy for breakthrough but not using + bowel function labs stable and normal drain serosanguineous, minimal in bulb now monitor for bile leak - if + before Tuesday, will have ERCP with stent if no bile in drain through Tuesday afternoon, plan HIDA am GI following Code(s): K80.10 - CALCULUS OF GALLBLADDER W CHRONIC CHOLECYST W/O OBSTRUCTION
[2017-05-15] MEDS: BACITRACIN 15 GM TUBE TOPICAL OINTMENT TP SCH ×2 (14:32→21:38)
--- NOTE | 2017-05-15 15:20 | PN ---
Progress Note, Physician History of Present Illness: Tolerating reg. diet. c/o pain @ incisions. HUSSEIN - serosanguineous fluid ~ 20 cc - Current Medication List Current Medications: Active Medications Acetaminophen (Tylenol -) 650 mg PO Q6H PRN PRN Reason: FEVER OR PAIN Last Admin: 05/15/17 06:46 Dose: 650 mg Bacitracin (Bacitracin -) 1 applic TP TID [facility] Last Admin: 05/15/17 14:32 Dose: 1 applic Docusate Sodium (Colace -) 100 mg PO BID [facility] Last Admin: 05/15/17 10:10 Dose: 100 mg Ondansetron HCl (Zofran Injection) 4 mg IVPUSH Q6H PRN PRN Reason: NAUSEA Oxycodone HCl (Roxicodone -) 5 mg PO Q4H PRN PRN Reason: SEVERE PAIN Last Admin: 05/14/17 17:42 Dose: 5 mg - Objective Vital Signs: Vital Signs Temperature 98.1 F 05/15/17 14:30 Pulse Rate 71 05/15/17 14:30 Respiratory Rate 20 05/15/17 14:30 Blood Pressure 138/59 05/15/17 14:30 O2 Sat by Pulse Oximetry (%) 99 05/14/17 21:00 Constitutional: Yes: Well Nourished, No Distress, Calm Eyes: Yes: Conjunctiva Clear HENT: Yes: Atraumatic Neck: Yes: Supple Cardiovascular: Yes: Regular Rate and Rhythm Respiratory: Yes: Regular Gastrointestinal: Yes: Normal Bowel Sounds, Soft, Tenderness (see hpi) Neurological: Yes: Alert, Oriented Labs: CBC, BMP 05/15/17 06:00 05/15/17 06:00 INR, PTT INR 1.05 (0.82-1.09) 05/12/17 19:17 CBCD WBC 6.1 K/mm3 (4.0-10.0) 05/15/17 06:00 RBC 5.02 M/mm3 (4.00-5.60) 05/15/17 06:00 Hgb 15.1 GM/dL (11.7-16.9) 05/15/17 06:00 Hct 43.3 % (35.4-49) 05/15/17 06:00 MCV 86.2 fl (80-96) 05/15/17 06:00 MCHC 34.9 g/dl (32.0-35.9) 05/15/17 06:00 RDW 13.2 % (11.9-15.9) 05/15/17 06:00 Plt Count 257 K/MM3 (134-434) 05/15/17 06:00 MPV 8.0 fl (7.5-11.1) 05/15/17 06:00 CMP Sodium 139 mmol/L (136-145) 05/15/17 06:00 Potassium 4.2 mmol/L (3.5-5.1) 05/15/17 06:00 Chloride 101 mmol/L (98-107) 05/15/17 06:00 Carbon Dioxide 29 mmol/L (21-32) 05/15/17 06:00 Anion Gap 9 (8-16) 05/15/17 06:00 BUN 10 mg/dL (7-18) D 05/15/17 06:00 Creatinine 0.8 mg/dL (0.7-1.3) 05/15/17 06:00 Creat Clearance w eGFR > 60 (>60) 05/15/17 06:00 Calcium 8.8 mg/dL (8.5-10.1) 05/15/17 06:00 Total Bilirubin 0.6 mg/dL (0.2-1.0) D 05/15/17 06:00 AST 31 U/L (15-37) 05/15/17 06:00 ALT 69 U/L (12-78) 05/15/17 06:00 Alkaline Phosphatase 74 U/L (45-117) 05/15/17 06:00 Total Protein 6.6 g/dl (6.4-8.2) 05/15/17 06:00 Albumin 3.2 g/dl (3.4-5.0) L 05/15/17 06:00 Problem List - Problems (1) Calculus of gallbladder with chronic cholecystitis without obstruction Code(s): K80.10 - CALCULUS OF GALLBLADDER W CHRONIC CHOLECYST W/O OBSTRUCTION (2) Cholelithiasis Code(s): K80.20 - CALCULUS OF GALLBLADDER W/O CHOLECYSTITIS W/O OBSTRUCTION Qualifiers: Cholelithiasis location: gallbladder Cholecystitis presence: with cholecystitis Cholecystitis acuity: chronic Biliary obstruction: without biliary obstruction Qualified Code(s): K80.10 - Calculus of gallbladder with chronic cholecystitis without obstruction; K80.10 - Calculus of gallbladder with chronic cholecystitis without obstruction (3) Chronic cholecystitis Code(s): K81.1 - CHRONIC CHOLECYSTITIS Assessment/Plan s/p cholecystectomy with concern for bile leak from cystic duct. monitor for bile in HUSSEIN drainage, worsening RUQ pain, fever, leukocytosis, liver chemistry, GGT HIDA ERCP with CBD stenting if cystic duct leak present will follow
[2017-05-16] MEDS: BACITRACIN 15 GM TUBE TOPICAL OINTMENT TP SCH ×3 (05:30→21:03)
[2017-05-16 07:49] LABS: MCH 29.5 pg (25.7-33.7); MCHC 34.4 g/dl (32.0-35.9); MEAN CELL VOLUME 85.7 fl (80-96); MEAN PLT VOLUME 7.7 fl (7.5-11.1); PLATELET COUNT 301 K/MM3 (134-434); RDW 12.8 % (11.9-15.9); WHITE BLOOD COUNT 6.2 K/mm3 (4.0-10.0)
[2017-05-16 08:09] LABS: ALBUMIN 3.4 g/dl (3.4-5.0); ANION GAP 8 (8-16); BILIRUBIN,TOTAL 0.6 mg/dL (0.2-1.0); CO2 28 mmol/L (21-32); GLUCOSE,RANDOM 83 mg/dL (74-106); SGOT/AST 28 U/L (15-37); SGPT/ALT 77 U/L (12-78)
[2017-05-16 08:10] LABS: ALK PHOS 90 U/L (45-117); CREATININE 0.8 mg/dL (0.7-1.3); TOT PROT 7.1 g/dl (6.4-8.2)
[2017-05-16] MEDS: DOCUSATE SODIUM 100 MG CAPSULE (FP) PO SCH ×2 (10:06→21:03)
--- NOTE | 2017-05-16 11:42 | PN ---
Progress Note, Physician Chief Complaint: RUQ pain History of Present Illness: s/p lap danyel, pt seen and examined sitting in chair tolerating diet passing flatus, no BM yesterday voiding well OOB/ambulating pain controlled with occ tylenol drain with 15 out yesterday, serosang no fevers tape blisters - using bacitracin - Current Medication List Current Medications: Active Medications Acetaminophen (Tylenol -) 650 mg PO Q6H PRN PRN Reason: FEVER OR PAIN Last Admin: 05/15/17 06:46 Dose: 650 mg Bacitracin (Bacitracin -) 1 applic TP TID [facility] Last Admin: 05/16/17 05:30 Dose: 1 applic Docusate Sodium (Colace -) 100 mg PO BID [facility] Last Admin: 05/16/17 10:06 Dose: 100 mg Ondansetron HCl (Zofran Injection) 4 mg IVPUSH Q6H PRN PRN Reason: NAUSEA Oxycodone HCl (Roxicodone -) 5 mg PO Q4H PRN PRN Reason: SEVERE PAIN Last Admin: 05/14/17 17:42 Dose: 5 mg - Objective Vital Signs: Vital Signs Temperature 97.4 F L 05/16/17 10:00 Pulse Rate 69 05/16/17 10:00 Respiratory Rate 18 05/16/17 10:00 Blood Pressure 109/60 05/16/17 10:00 O2 Sat by Pulse Oximetry (%) 99 05/15/17 21:00 Vital Signs Period Temp Pulse Resp BP Sys/Antony Pulse Ox Last 24 Hr 97.4 F-98.5 F 69-75 18-20 109-138/59-70 99 Intake & Output 05/15/17 05/16/17 05/16/17 23:59 07:59 15:59 Intake Total 300 200 350 Output Total 615 5 Balance -315 195 350 Intake: Oral 300 200 350 Output: Drainage 15 5 Right Lower Abdomen 15 5 Urine 600 Void 600 Other: Voiding Method Toilet Toilet # Unmeasured Voids Void 1 2 Bowel Movement No No Constitutional: Yes: Well Nourished, No Distress, Calm Eyes: Yes: Conjunctiva Clear, EOM Intact. No: Sclera Icterus Cardiovascular: Yes: Regular Rate and Rhythm. No: Murmur Respiratory: Yes: Regular, CTA Bilaterally Gastrointestinal: Yes: Normal Bowel Sounds, Soft, Distention (minimal), Tenderness (mild RUQ/incisional), Other (HUSSEIN drain with minimal serosang in bulb) Extremities: No: Cool, Cyanosis Edema: No Integumentary: Yes: Incision (x3 + drain site), Skin Tear (few tape blisters, some intact, couple open around drain site dressing, with bacitracin and telfa over some). No: Jaundice Wound/Incision: Yes: Steri Strips (x3), Open to air, Dressing Dry and Intact ( at HUSSEIN drain) Neurological: Yes: Alert, Oriented Labs: CBC, BMP 05/16/17 06:00 05/16/17 06:00 CMP Sodium 138 mmol/L (136-145) 05/16/17 06:00 Potassium 4.0 mmol/L (3.5-5.1) 05/16/17 06:00 Chloride 102 mmol/L (98-107) 05/16/17 06:00 Carbon Dioxide 28 mmol/L (21-32) 05/16/17 06:00 Anion Gap 8 (8-16) 05/16/17 06:00 BUN 11 mg/dL (7-18) 05/16/17 06:00 Creatinine 0.8 mg/dL (0.7-1.3) 05/16/17 06:00 Creat Clearance w eGFR > 60 (>60) 05/16/17 06:00 Random Glucose 83 mg/dL (74-106) 05/16/17 06:00 Calcium 9.0 mg/dL (8.5-10.1) 05/16/17 06:00 Total Bilirubin 0.6 mg/dL (0.2-1.0) 05/16/17 06:00 GGT 79 U/L (5-85) 05/14/17 06:00 AST 28 U/L (15-37) 05/16/17 06:00 ALT 77 U/L (12-78) 05/16/17 06:00 Alkaline Phosphatase 90 U/L (45-117) D 05/16/17 06:00 Total Protein 7.1 g/dl (6.4-8.2) 05/16/17 06:00 Albumin 3.4 g/dl (3.4-5.0) 05/16/17 06:00 Lipase 116 U/L (73-393) 05/16/17 06:00 Problem List - Problems (1) Calculus of gallbladder with chronic cholecystitis without obstruction Assessment/Plan: POD3 s/p laparoscopic cholecystectomy with cystic duct hole close to CBD, cystic duct clipped, HUSSEIN drain left doing well tolerating diet, pain decreasing daily flatus but no further BM yet labs stable and normal drain serosanguineous, minimal in bulb now, not bilious monitor for bile leak - will do HIDA in am if negative, will d/c drain and d/c home tomorrow GI following Code(s): K80.10 - CALCULUS OF GALLBLADDER W CHRONIC CHOLECYST W/O OBSTRUCTION
--- NOTE | 2017-05-16 12:26 | PN ---
Progress Note, Physician History of Present Illness: Tolerating reg. diet. No pain. HUSSEIN - serosanguineous fluid ~ 10-15 cc - Current Medication List Current Medications: Active Medications Acetaminophen (Tylenol -) 650 mg PO Q6H PRN PRN Reason: FEVER OR PAIN Last Admin: 05/15/17 06:46 Dose: 650 mg Bacitracin (Bacitracin -) 1 applic TP TID [facility] Last Admin: 05/16/17 05:30 Dose: 1 applic Docusate Sodium (Colace -) 100 mg PO BID [facility] Last Admin: 05/16/17 10:06 Dose: 100 mg Ondansetron HCl (Zofran Injection) 4 mg IVPUSH Q6H PRN PRN Reason: NAUSEA - Objective Vital Signs: Vital Signs Temperature 97.4 F L 05/16/17 10:00 Pulse Rate 69 05/16/17 10:00 Respiratory Rate 18 05/16/17 10:00 Blood Pressure 109/60 05/16/17 10:00 O2 Sat by Pulse Oximetry (%) 99 05/15/17 21:00 Constitutional: Yes: No Distress, Calm Eyes: Yes: Conjunctiva Clear HENT: Yes: Atraumatic Neck: Yes: Supple Cardiovascular: Yes: Regular Rate and Rhythm Respiratory: Yes: Regular Gastrointestinal: Yes: Normal Bowel Sounds, Soft Labs: CBC, BMP 05/16/17 06:00 05/16/17 06:00 INR, PTT INR 1.05 (0.82-1.09) 05/12/17 19:17 CBCD WBC 6.2 K/mm3 (4.0-10.0) 05/16/17 06:00 RBC 5.28 M/mm3 (4.00-5.60) 05/16/17 06:00 Hgb 15.6 GM/dL (11.7-16.9) 05/16/17 06:00 Hct 45.3 % (35.4-49) 05/16/17 06:00 MCV 85.7 fl (80-96) 05/16/17 06:00 MCHC 34.4 g/dl (32.0-35.9) 05/16/17 06:00 RDW 12.8 % (11.9-15.9) 05/16/17 06:00 Plt Count 301 K/MM3 (134-434) 05/16/17 06:00 MPV 7.7 fl (7.5-11.1) 05/16/17 06:00 CMP Sodium 138 mmol/L (136-145) 05/16/17 06:00 Potassium 4.0 mmol/L (3.5-5.1) 05/16/17 06:00 Chloride 102 mmol/L (98-107) 05/16/17 06:00 Carbon Dioxide 28 mmol/L (21-32) 05/16/17 06:00 Anion Gap 8 (8-16) 05/16/17 06:00 BUN 11 mg/dL (7-18) 05/16/17 06:00 Creatinine 0.8 mg/dL (0.7-1.3) 05/16/17 06:00 Creat Clearance w eGFR > 60 (>60) 05/16/17 06:00 Calcium 9.0 mg/dL (8.5-10.1) 05/16/17 06:00 Total Bilirubin 0.6 mg/dL (0.2-1.0) 05/16/17 06:00 AST 28 U/L (15-37) 05/16/17 06:00 ALT 77 U/L (12-78) 05/16/17 06:00 Alkaline Phosphatase 90 U/L (45-117) D 05/16/17 06:00 Total Protein 7.1 g/dl (6.4-8.2) 05/16/17 06:00 Albumin 3.4 g/dl (3.4-5.0) 05/16/17 06:00 Problem List - Problems (1) Calculus of gallbladder with chronic cholecystitis without obstruction Code(s): K80.10 - CALCULUS OF GALLBLADDER W CHRONIC CHOLECYST W/O OBSTRUCTION (2) Cholelithiasis Code(s): K80.20 - CALCULUS OF GALLBLADDER W/O CHOLECYSTITIS W/O OBSTRUCTION Qualifiers: Cholelithiasis location: gallbladder Cholecystitis presence: with cholecystitis Cholecystitis acuity: chronic Biliary obstruction: without biliary obstruction Qualified Code(s): K80.10 - Calculus of gallbladder with chronic cholecystitis without obstruction; K80.10 - Calculus of gallbladder with chronic cholecystitis without obstruction (3) Chronic cholecystitis Code(s): K81.1 - CHRONIC CHOLECYSTITIS Assessment/Plan s/p cholecystectomy with concern for bile leak from cystic duct. Asymptomatic. Monitor for bile in HUSSEIN drainage, worsening RUQ pain, fever, leukocytosis, liver chemistry, GGT HIDA
[2017-05-17] MEDS: BACITRACIN 15 GM TUBE TOPICAL OINTMENT TP SCH ×2 (05:42→14:45)
[2017-05-17 07:46] LABS: MCH 29.5 pg (25.7-33.7); MCHC 34.3 g/dl (32.0-35.9); MEAN PLT VOLUME 7.7 fl (7.5-11.1); PLATELET COUNT 313 K/MM3 (134-434); WHITE BLOOD COUNT 6.4 K/mm3 (4.0-10.0)
[2017-05-17 08:16] LABS: ALBUMIN 3.3 g/dl (3.4-5.0); ALK PHOS 95 U/L (45-117); ANION GAP 11 (8-16); BILIRUBIN,TOTAL 0.5 mg/dL (0.2-1.0); CO2 26 mmol/L (21-32); CREATININE 0.8 mg/dL (0.7-1.3); GLUCOSE,RANDOM 84 mg/dL (74-106); SGOT/AST 23 U/L (15-37); SGPT/ALT 73 U/L (12-78); TOT PROT 7.1 g/dl (6.4-8.2)
--- NOTE | 2017-05-17 09:54 | PN ---
Progress Note, Physician History of Present Illness: Tolerating reg. diet. No pain. HUSSEIN - serosanguineous fluid ~ 5 cc - Current Medication List Current Medications: Active Medications Acetaminophen (Tylenol -) 650 mg PO Q6H PRN PRN Reason: FEVER OR PAIN Last Admin: 05/15/17 06:46 Dose: 650 mg Bacitracin (Bacitracin -) 1 applic TP TID [facility] Last Admin: 05/17/17 05:42 Dose: 1 applic Docusate Sodium (Colace -) 100 mg PO BID [facility] Last Admin: 05/16/17 21:03 Dose: 100 mg Ondansetron HCl (Zofran Injection) 4 mg IVPUSH Q6H PRN PRN Reason: NAUSEA - Objective Vital Signs: Vital Signs Temperature 97.9 F 05/17/17 06:00 Pulse Rate 72 05/17/17 06:00 Respiratory Rate 18 05/17/17 06:00 Blood Pressure 104/56 05/17/17 06:00 O2 Sat by Pulse Oximetry (%) 98 05/16/17 21:00 Constitutional: Yes: No Distress, Calm Eyes: Yes: Conjunctiva Clear Gastrointestinal: Yes: Normal Bowel Sounds, Soft. No: Tenderness Labs: CBC, BMP 05/17/17 07:25 05/17/17 07:25 INR, PTT INR 1.05 (0.82-1.09) 05/12/17 19:17 CBCD WBC 6.4 K/mm3 (4.0-10.0) 05/17/17 07:25 RBC 5.35 M/mm3 (4.00-5.60) 05/17/17 07:25 Hgb 15.8 GM/dL (11.7-16.9) 05/17/17 07:25 Hct 46.0 % (35.4-49) 05/17/17 07:25 MCV 86.0 fl (80-96) 05/17/17 07:25 MCHC 34.3 g/dl (32.0-35.9) 05/17/17 07:25 RDW 13.0 % (11.9-15.9) 05/17/17 07:25 Plt Count 313 K/MM3 (134-434) 05/17/17 07:25 MPV 7.7 fl (7.5-11.1) 05/17/17 07:25 CMP Sodium 139 mmol/L (136-145) 05/17/17 07:25 Potassium 4.2 mmol/L (3.5-5.1) 05/17/17 07:25 Chloride 102 mmol/L (98-107) 05/17/17 07:25 Carbon Dioxide 26 mmol/L (21-32) 05/17/17 07:25 Anion Gap 11 (8-16) 05/17/17 07:25 BUN 13 mg/dL (7-18) 05/17/17 07:25 Creatinine 0.8 mg/dL (0.7-1.3) 05/17/17 07:25 Creat Clearance w eGFR > 60 (>60) 05/17/17 07:25 Calcium 9.0 mg/dL (8.5-10.1) 05/17/17 07:25 Total Bilirubin 0.5 mg/dL (0.2-1.0) 05/17/17 07:25 AST 23 U/L (15-37) 05/17/17 07:25 ALT 73 U/L (12-78) 05/17/17 07:25 Alkaline Phosphatase 95 U/L (45-117) 05/17/17 07:25 Total Protein 7.1 g/dl (6.4-8.2) 05/17/17 07:25 Albumin 3.3 g/dl (3.4-5.0) L 05/17/17 07:25 Problem List - Problems (1) Calculus of gallbladder with chronic cholecystitis without obstruction Code(s): K80.10 - CALCULUS OF GALLBLADDER W CHRONIC CHOLECYST W/O OBSTRUCTION (2) Cholelithiasis Code(s): K80.20 - CALCULUS OF GALLBLADDER W/O CHOLECYSTITIS W/O OBSTRUCTION Qualifiers: Cholelithiasis location: gallbladder Cholecystitis presence: with cholecystitis Cholecystitis acuity: chronic Biliary obstruction: without biliary obstruction Qualified Code(s): K80.10 - Calculus of gallbladder with chronic cholecystitis without obstruction; K80.10 - Calculus of gallbladder with chronic cholecystitis without obstruction (3) Chronic cholecystitis Code(s): K81.1 - CHRONIC CHOLECYSTITIS Assessment/Plan s/p cholecystectomy with concern for bile leak from cystic duct. Asymptomatic. HIDA today as per sx
[2017-05-17] MEDS: DOCUSATE SODIUM 100 MG CAPSULE (FP) PO SCH (11:05)
--- NOTE | 2017-05-17 13:16 | PATH ---
Surgical Pathology Report Patient Name: VERO RANDLE Med. Rec. #: [id number] /Age/Gender: 1985 (Age: 31) / M Account: [id number] Location: [facility] MED/SURG Taken: 05/13/2017 Received: 05/13/2017 Reported: 05/17/2017 Physicians: Andrea Britton M.D. Specimen(s) Received GALLBLADDER Clinical History Cholelithiasis, impacted gallstone the gallbladder, chronic cholecystitis Final Diagnosis GALLBLADDER, CHOLECYSTECTOMY: ACUTE AND CHRONIC CHOLECYSTITIS AND CHOLELITHIASIS. Electronically Signed Jorge Mead M.D. Gross Description Received in formalin, labeled "gallbladder," is a 11.0 x 3.3 x 3.0 cm. gallbladder with a 0.2 cm. in length portion of cystic duct attached. There is a 1.0 x 0.6 x 0.4 cm brown periductal lymph node present. The outer surface is henry-pink and varies from smooth to shaggy. The lumen contains red blood as well as a 1.6 cm in greatest dimension henry, ovoid cholelith. The mucosa is hyperemic with gold cholesterol stippling. The wall of the gallbladder averages 0.3 cm. in thickness. Psychology Fellow sections including one whole bisected lymph node are submitted in 2 cassettes. 05/13/2017 [facility]05/13/2017
[2017-05-17 15:07] VITALS: BP 116/59; PULSE 73; TEMP 98.4
--- NOTE | 2017-05-17 15:56 | DS ---
Physical Examination Vital Signs: Vital Signs Temperature 98.4 F 05/17/17 15:00 Pulse Rate 73 05/17/17 15:00 Respiratory Rate 20 05/17/17 15:00 Blood Pressure 116/59 05/17/17 15:00 O2 Sat by Pulse Oximetry (%) 98 05/17/17 09:00 Intake & Output 05/16/17 05/17/17 05/17/17 23:59 07:59 15:59 Intake Total 950 Output Total 10 Balance 950 -10 Intake: Oral 950 Output: Drainage 10 Right Lower Abdomen 10 Other: Voiding Method Toilet Toilet # Unmeasured Voids Void 2 2 Bowel Movement Yes: 2times # Bowel Movements 1 Findings/Remarks: Pt seen and examined in chair earlier after HIDA scan. Feeling well. No complaints. Drain with minimal serosang output, no bilious content. Pain controlled with tylenol prn. Constitutional: Yes: Well Nourished, No Distress, Calm Eyes: Yes: Conjunctiva Clear, EOM Intact. No: Sclera Icterus Cardiovascular: Yes: Regular Rate and Rhythm. No: Murmur Respiratory: Yes: Regular, CTA Bilaterally Gastrointestinal: Yes: Normal Bowel Sounds, Soft, Tenderness (minimal RUQ), Other (HUSSEIN drain with scant serosanguineous output in bulb). No: Distention Integumentary: Yes: Incision (x3 + drain site), Other (several blisters from dressings, open and intact, using bacitracin) Wound/Incision: Yes: Steri Strips (x3 - intact), Other (HUSSEIN drain removed and site dressed with gauze) Neurological: Yes: Alert, Oriented Labs: CBC, BMP 05/17/17 07:25 05/17/17 07:25 CMP Sodium 139 mmol/L (136-145) 05/17/17 07:25 Potassium 4.2 mmol/L (3.5-5.1) 05/17/17 07:25 Chloride 102 mmol/L (98-107) 05/17/17 07:25 Carbon Dioxide 26 mmol/L (21-32) 05/17/17 07:25 Anion Gap 11 (8-16) 05/17/17 07:25 BUN 13 mg/dL (7-18) 05/17/17 07:25 Creatinine 0.8 mg/dL (0.7-1.3) 05/17/17 07:25 Creat Clearance w eGFR > 60 (>60) 05/17/17 07:25 Random Glucose 84 mg/dL (74-106) 05/17/17 07:25 Calcium 9.0 mg/dL (8.5-10.1) 05/17/17 07:25 Total Bilirubin 0.5 mg/dL (0.2-1.0) 05/17/17 07:25 AST 23 U/L (15-37) 05/17/17 07:25 ALT 73 U/L (12-78) 05/17/17 07:25 Alkaline Phosphatase 95 U/L (45-117) 05/17/17 07:25 Total Protein 7.1 g/dl (6.4-8.2) 05/17/17 07:25 Albumin 3.3 g/dl (3.4-5.0) L 05/17/17 07:25 Lipase 175 U/L (73-393) 05/17/17 07:25 Discharge Summary Reason For Visit: IMPACTED GALLSTONE, CHRONIC CHOLECYSTITIS Current Active Problems Calculus of gallbladder with chronic cholecystitis without obstruction (Acute) Cholelithiasis (Acute) Chronic cholecystitis (Acute) Dehydration (Acute) Procedures: Principal: laparoscopic cholecystectomy Hospital Course: 31yo healthy M presented with RUQ pain and was found to have moderate size gallstone in the neck of the gallbladder on US. He had normal LFTs and wbc. He had pain on/off over the last two years, but this time was the worst. He was admitted to surgery with chronic cholecystitis and impacted gallstone, and taken for laparoscopic cholecystectomy. There was concern for a potential bile leak postoperatively, because the cystic duct was clipped at the junction of the CBD, where a hole had been made in the cystic duct, so a drain was left, and he was kept for observation. He had perioperative antibiotics only. Lab trends showed continued normal LFTs and lipase. The drain put out decreasing amounts of serosanguineous fluid with no bilious content. GI was consulted to follow, but HIDA this morning at POD4 was negative for any bile leak with good tracer flow into the intestine. His drain was d/c'd. He is tolerating regular diet and using only tylenol prn for pain. He is discharged to f/u with surgery 2 wks postop and his PMD soon as well. He is referred to Dr. Maxine Rayo for primary care, as he had no PMD on admission. Condition: Good - Instructions Diet, Activity, Other Instructions: Postoperative instructions: You had a laparoscopic cholecystectomy on 05/13/[address] Andrea Britton of [facility]. Activity: Resume your usual activities gradually, but no heavy exertion or lifting more than 10-20 pounds for 1 month. Sticky tapes will fall off by themselves. You may shower daily, just pat the incision areas dry. No baths or swimming until the skin incisions have healed. Leave the dressing at the drain site for 24-48 hours before starting to shower (sponge bathe until then). If it leaks after that, ok to cover with gauze or a band-aid until it stops. Use bacitracin ointment on blistered areas as needed. Ok to cover with band-aids if needed. Diet: Eat lightly at first, but advance to your usual diet as tolerated. Pain: For pain, you may use and alternate Tylenol (acetaminophen) and/or ibuprofen every 6 hours each as needed; this means that you can take one OR the other at 3-hour intervals. Do not take more than 4000mg of acetaminophen in a day. Take medications as prescribed or indicated on the labeling. Follow-up: Call Dr. Britton's office at [phone] to make your postop appointment (Tuesday ~2 weeks after surgery). Clinic is held in the [facility] on the first floor of [facility]. Call the office if you have: * increasing pain not responsive to pain medication * fever of 101F or higher * vomiting * unusual or increasing bleeding or drainage from wounds * increasing redness or swelling at wound sites * inability to urinate Also, make an appointment to see Dr. Rayo to establish primary care within 1-2 weeks. Referrals: Maxine Rayo MD [Staff Physician] - Disposition: HOME - Home Medications Comprehensive Discharge Medication List: Ambulatory Orders Acetaminophen [Tylenol .Regular Strength -] 650 mg PO Q6H PRN #0 tablet Bacitracin - [Bacitracin Topical Ointment -] 1 applic TP TID tube 05/17/17
[2017-05-17] MEDS: ACETAMINOPHEN 325 MG TABLET (FP) PO PRN (16:45)
== END 2017-05-17 18:56 | disposition home or self-care (01) | DRG 261 ==
LOC: JER 15:30 → JERBED 20:34 → J8W 05-13 13:45
PROVIDERS: ADMIT Surgery; ATTEND Surgery
PROC: 0FQ Hepatobiliary System and Pancreas, Repair (ICD-10-PCS; 2017-05-13)
PROC: 0FT44ZZ Resection of Gallbladder, Percutaneous Endoscopic Approach (ICD-10-PCS; principal; 2017-05-13 08:00)
DX: K80.10 Calculus of gallbladder with chronic cholecystitis without obstruction (principal); K82.2 Perforation of gallbladder; F41.8 Other specified anxiety disorders; F17.210 Nicotine dependence, cigarettes, uncomplicated; F10.10 Alcohol abuse, uncomplicated; F12.10 Cannabis abuse, uncomplicated; E86.0 Dehydration; K59.09 Other constipation
CPT/HCPCS: 36415; 76705-TC; 78226-TC; 80053; 81003; 82150; 82977; 83690; 85025; 85027; 85610; 85730; 86850; 86900; 86901; 88304-TC; 94760; 99284-25; A9537